=== PATIENT | female | born 1945 | race Caucasian/White ===

== ENCOUNTER 2022-08-06 07:37 | Inpatient (IN) | payer OTHER ==
[~2022-08-06] VITALS: Ht 160 cm; Wt 42.7 kg
[2022-08-06] MEDS ORDERED: SODIUM CHLORIDE 0.9% 500 ML IV ONE (08:00)
[2022-08-06] MEDS ORDERED: PANTOPRAZOLE 40mg/50ML NS AE 50 ML IV ONE (08:00)
[2022-08-06 08:15] LABS: Basophils # (auto) 0 10 ^3/uL (0-0.2); Basophils % (auto) 0.7 % (0.0-2.0); Eosinophils # (auto) 0 10 ^3/uL (0-0.8); Eosinophils % (auto) 0.6 % (0.0-7.0); Hematocrit 35.8 % (36.0-46.0); Hemoglobin 12.2 g/dL (12.2-16.2); Lymphocytes # (auto) 0.6 10 ^3/uL (0.4-5.4); Mean Corpuscular Hemoglobin 29.2 pg (28.0-32.0); Monocytes # (auto) 0.4 10 ^3/uL (0-1.3); Neutrophils # (auto) 2.7 10 ^3/uL (1.6-8.6); Neutrophils % (auto) 71.7 % (37.0-80.0); Nucleated Red Blood Cells % 0.2 %; Red Blood Cells 4.16 10^6/uL (4.0-5.20); Red Cell Distribution Width 12.6 % (11.8-14.3); White Blood Cell 3.7 10^3/uL (4.4-10.8)
[2022-08-06 08:30] LABS: Potassium 4.5 mmol/L (3.5-5.1)
[2022-08-06 08:36] LABS: Albumin 3.2 g/dL (3.4-5.0); BUN/Creatinine Ratio 19.9 (10.0-20.0); Bilirubin, Total 0.6 mg/dL (0.2-1.0); Calcium 9.1 mg/dL (8.5-10.1); Total Protein 6.5 g/dL (6.4-8.2)
[2022-08-06] MEDS ORDERED: SODIUM CHLORIDE 0.9% 1,000 ML IV ONE ×4 (11:45)
[2022-08-06] MEDS ORDERED: MORPHINE SULFATE INJ 2 MG/ml SYRG IV PRN (11:45)
[2022-08-06] MEDS ORDERED: NITROGLYCERIN 0.4 MG SL TAB SL PRN (11:45)
[2022-08-06 12:21] LABS: Basophils # (auto) 0 10 ^3/uL (0-0.2); Basophils % (auto) 0.6 % (0.0-2.0); Eosinophils # (auto) 0 10 ^3/uL (0-0.8); Eosinophils % (auto) 0.7 % (0.0-7.0); Hematocrit 36.4 % (36.0-46.0); Hemoglobin 12.1 g/dL (12.2-16.2); Lymphocytes % (auto) 23.6 % (10.0-50.0); Mean Corpuscular Hemoglobin 28.8 pg (28.0-32.0); Mean Corpuscular Hgb Conc. 33.3 g/dL (32.0-36.0); Mean Corpuscular Volume 86.4 fL (80.0-100.0); Monocytes # (auto) 0.4 10 ^3/uL (0-1.3); Neutrophils # (auto) 2.7 10 ^3/uL (1.6-8.6); Neutrophils % (auto) 66.1 % (37.0-80.0); Nucleated Red Blood Cells % 0.4 %; Red Blood Cells 4.21 10^6/uL (4.0-5.20); Red Cell Distribution Width 12.7 % (11.8-14.3); White Blood Cell 4.2 10^3/uL (4.4-10.8)
[2022-08-06 12:23] LABS: INR 1.18 (0.9-1.15)
[2022-08-06 12:39] LABS: Urine Bacteria FEW /hpf (None Seen); Urine Blood Negative /uL (Negative); Urine Hyaline Cast FEW /lpf (0 - 2); Urine Specific Gravity 1.015 (1.001-1.035); Urine WBC 18 /hpf (0 - 5)
[2022-08-06] MEDS: SODIUM CHLORIDE 0.9% 1,000 ML IV SCH ×2 (14:02→23:15)
[2022-08-06] MEDS: PIPERACILLIN-TAZOB 2.25GM 50 ML IV SCH ×2 (14:02→20:26)
[2022-08-06] MEDS: HYDROcodone-ACET 5/325MG TAB PO PRN (22:32)
[2022-08-06] MEDS: PANTOPRAZOLE 40 MG/10 ML VIAL INJ IV SCH (22:32)
[2022-08-07] MEDS: HYDROcodone-ACET 5/325MG TAB PO PRN (02:35)
[2022-08-07 06:10] LABS: Basophils # (auto) 0 10 ^3/uL (0-0.2); Basophils % (auto) 0.5 % (0.0-2.0); Eosinophils # (auto) 0 10 ^3/uL (0-0.8); Hematocrit 31.4 % (36.0-46.0); Lymphocytes # (auto) 0.5 10 ^3/uL (0.4-5.4); Lymphocytes % (auto) 14.1 % (10.0-50.0); Mean Corpuscular Hemoglobin 32.8 pg (28.0-32.0); Mean Corpuscular Hgb Conc. 34.9 g/dL (32.0-36.0); Mean Corpuscular Volume 94.1 fL (80.0-100.0); Monocytes # (auto) 0.3 10 ^3/uL (0-1.3); Monocytes % (auto) 9.7 % (0.0-12.0); Neutrophils # (auto) 2.5 10 ^3/uL (1.6-8.6); Neutrophils % (auto) 74.7 % (37.0-80.0); Nucleated Red Blood Cells % 0.1 %; Red Blood Cells 3.34 10^6/uL (4.0-5.20); Red Cell Distribution Width 12.4 % (11.8-14.3); White Blood Cell 3.3 10^3/uL (4.4-10.8)
[2022-08-07] MEDS: PIPERACILLIN-TAZOB 2.25GM 50 ML IV SCH ×3 (06:26→14:34)
[2022-08-07 06:44] LABS: Potassium 3.8 mmol/L (3.5-5.1)
[2022-08-07 07:00] LABS: Albumin 2.9 g/dL (3.4-5.0); BUN/Creatinine Ratio 21.5 (10.0-20.0); Bilirubin, Total 0.7 mg/dL (0.2-1.0); Calcium 8.6 mg/dL (8.5-10.1)
[2022-08-07] MEDS ORDERED: LEVO500T31 PO (07:57)
[2022-08-07] MEDS ORDERED: METR500T PO (07:57)
[2022-08-07] MEDS: LACTATED RINGER'S 1,000 ML IV SCH ×3 (08:00→22:27)
[2022-08-07] MEDS: PANTOPRAZOLE 40 MG/10 ML VIAL INJ IV SCH ×2 (10:00→22:17)
[2022-08-07] MEDS: SODIUM BICARBONATE 650 MG TAB PO SCH ×2 (18:00→22:17)
[2022-08-08] MEDS: PIPERACILLIN-TAZOB 2.25GM 50 ML IV SCH (05:29)
[2022-08-08] MEDS: SODIUM BICARBONATE 650 MG TAB PO SCH (05:31)
[2022-08-08 06:28] LABS: Basophils # (auto) 0 10 ^3/uL (0-0.2); Basophils % (auto) 0.7 % (0.0-2.0); Eosinophils # (auto) 0 10 ^3/uL (0-0.8); Eosinophils % (auto) 1.2 % (0.0-7.0); Hematocrit 30.4 % (36.0-46.0); Hemoglobin 10.4 g/dL (12.2-16.2); Lymphocytes # (auto) 0.7 10 ^3/uL (0.4-5.4); Lymphocytes % (auto) 21.1 % (10.0-50.0); Mean Corpuscular Hemoglobin 29.6 pg (28.0-32.0); Mean Corpuscular Hgb Conc. 34.2 g/dL (32.0-36.0); Mean Corpuscular Volume 86.7 fL (80.0-100.0); Monocytes # (auto) 0.4 10 ^3/uL (0-1.3); Monocytes % (auto) 11.2 % (0.0-12.0); Neutrophils # (auto) 2.1 10 ^3/uL (1.6-8.6); Neutrophils % (auto) 65.8 % (37.0-80.0); Nucleated Red Blood Cells % 0.2 %; Red Cell Distribution Width 12.6 % (11.8-14.3); White Blood Cell 3.2 10^3/uL (4.4-10.8)
[2022-08-08 07:01] LABS: Potassium 3.8 mmol/L (3.5-5.1)
[2022-08-08 07:11] LABS: Albumin 2.6 g/dL (3.4-5.0); BUN/Creatinine Ratio 17.5 (10.0-20.0); Calcium 8.2 mg/dL (8.5-10.1)
[2022-08-08 07:13] LABS: Bilirubin, Total 0.6 mg/dL (0.2-1.0); Total Protein 5.6 g/dL (6.4-8.2)
[2022-08-08 07:20] VITALS: BP 114/73
== END 2022-08-08 08:35 | disposition home health service (06) | DRG 683 ==
LOC: EDBD 07:37 → ER 07:37 → TELE 11:45
PROVIDERS: ADMIT Internal Medicine; ATTEND Internal Medicine
DX: N17.9 Acute kidney failure, unspecified (principal); E44.0 Moderate protein-calorie malnutrition; Z68.1 Body mass index [BMI] 19.9 or less, adult; E03.9 Hypothyroidism, unspecified; E78.5 Hyperlipidemia, unspecified; I10 Essential (primary) hypertension; R63.4 Abnormal weight loss; Z90.49 Acquired absence of other specified parts of digestive tract; Z88.2 Allergy status to sulfonamides; Z91.040 Latex allergy status; Z90.710 Acquired absence of both cervix and uterus; I95.9 Hypotension, unspecified
CPT/HCPCS: 36415; 74176; 76775; 80053; 81001; 83690; 84484; 85025; 85610; 86850; 86870; 86900; 86901; 87040; 93005; 96365; 96366; C9113; G0378; J2543

== ENCOUNTER 2022-08-16 08:16 | Inpatient (IN) | payer OTHER ==
[~2022-08-16] VITALS: Ht 154.9 cm; Wt 47.0 kg
[~2022-08-16 08:16] MED LIST: LEVO500T31 PO; METR500T PO
[2022-08-16] MEDS ORDERED: SODIUM CHLORIDE 0.9% 1,000 ML IV ONE (08:30)
[2022-08-16] MEDS ORDERED: SODIUM CHLORIDE 0.9% 500 ML IV ONE (08:45)
[2022-08-16 09:46] LABS: Basophils # (auto) 0 10 ^3/uL (0-0.2); Basophils % (auto) 0.1 % (0.0-2.0); Eosinophils # (auto) 0 10 ^3/uL (0-0.8); Hematocrit 32.1 % (36.0-46.0); Lymphocytes # (auto) 0.5 10 ^3/uL (0.4-5.4); Lymphocytes % (auto) 11.2 % (10.0-50.0); Mean Corpuscular Hemoglobin 28.9 pg (28.0-32.0); Mean Corpuscular Hgb Conc. 34.3 g/dL (32.0-36.0); Mean Corpuscular Volume 84.4 fL (80.0-100.0); Monocytes # (auto) 0.4 10 ^3/uL (0-1.3); Monocytes % (auto) 9.4 % (0.0-12.0); Neutrophils # (auto) 3.7 10 ^3/uL (1.6-8.6); Neutrophils % (auto) 79.3 % (37.0-80.0); Nucleated Red Blood Cells % 0.1 %; Red Cell Distribution Width 13.4 % (11.8-14.3); White Blood Cell 4.7 10^3/uL (4.4-10.8)
[2022-08-16 09:59] LABS: Albumin 2.8 g/dL (3.4-5.0); Calcium 7.4 mg/dL (8.5-10.1)
[2022-08-16 10:03] LABS: BUN/Creatinine Ratio 17.8 (10.0-20.0); Bilirubin, Total 0.4 mg/dL (0.2-1.0); Total Protein 4.9 g/dL (6.4-8.2)
[2022-08-16 10:24] LABS: Potassium 2.4 mmol/L (3.5-5.1)
[2022-08-16] MEDS: POTASSIUM CHL 20MEQ/100ML 100 ML IV SCH ×2 (11:07→13:14)
[2022-08-16] MEDS ORDERED: ENOXAPARIN SOD 60 MG/0.6 ML SYRINGE SC ONE (11:30)
[2022-08-16 12:03] LABS: Urine Bacteria NONE SEEN /hpf (None Seen); Urine Blood Negative /uL (Negative); Urine Specific Gravity 1.014 (1.001-1.035); Urine WBC 1 /hpf (0 - 5)
[2022-08-16 12:41] LABS: Alcohol, Urine < 3.0 mg/dL (0-10); Amphetamine Screen, Urine NEGATIVE (NEGATIVE); Barbiturate Scree,Urine NEGATIVE (NEGATIVE); Benzodiazephine Screen, Urine NEGATIVE (NEGATIVE); Cannabinoid Screen, Urine NEGATIVE (NEGATIVE); Cocaine Screen, Urine NEGATIVE (NEGATIVE)
[2022-08-16 12:49] LABS: Opiate Scree,Urine NEGATIVE (NEGATIVE); Phencyclidine Screen, Urine NEGATIVE (NEGATIVE)
[2022-08-16] MEDS ORDERED: cefTRIAXone 1GM/50ML D5W 50 ML IV ONE (13:45)
[2022-08-16] MEDS ORDERED: HEPARIN DRIP/D5W 100UNITS/ML 250 ML IV SCH (14:45)
[2022-08-16] MEDS ORDERED: LORazepam 2MG/ML-1ML VIAL IV ONE (15:00)
[2022-08-16 15:22] LABS: Basophils # (auto) 0 10 ^3/uL (0-0.2); Basophils % (auto) 0.2 % (0.0-2.0); Eosinophils # (auto) 0 10 ^3/uL (0-0.8); Hematocrit 32.1 % (36.0-46.0); Hemoglobin 11.1 g/dL (12.2-16.2); Lymphocytes # (auto) 0.5 10 ^3/uL (0.4-5.4); Lymphocytes % (auto) 8.6 % (10.0-50.0); Mean Corpuscular Hemoglobin 29.2 pg (28.0-32.0); Mean Corpuscular Hgb Conc. 34.7 g/dL (32.0-36.0); Mean Corpuscular Volume 84.1 fL (80.0-100.0); Monocytes # (auto) 0.6 10 ^3/uL (0-1.3); Neutrophils # (auto) 5.1 10 ^3/uL (1.6-8.6); Neutrophils % (auto) 82.2 % (37.0-80.0); Nucleated Red Blood Cells % 0.1 %; Red Blood Cells 3.82 10^6/uL (4.0-5.20); Red Cell Distribution Width 13.3 % (11.8-14.3); White Blood Cell 6.2 10^3/uL (4.4-10.8)
[2022-08-16 16:14] LABS: INR 1.57 (0.9-1.15); Partial Thromboplastin Time 35.6 sec (24.6-33.4)
[2022-08-16] MEDS ORDERED: LORazepam 2MG/ML-1ML VIAL IV PRN (17:30)
[2022-08-16] MEDS ORDERED: levETIRAcetam 500 MG/5ML INJ IV ONE (22:40)
[2022-08-17 05:51] LABS: Basophils # (auto) 0 10 ^3/uL (0-0.2); Basophils % (auto) 0.3 % (0.0-2.0); Eosinophils # (auto) 0 10 ^3/uL (0-0.8); Eosinophils % (auto) 0.2 % (0.0-7.0); Hematocrit 31.9 % (36.0-46.0); Hemoglobin 11.1 g/dL (12.2-16.2); Lymphocytes # (auto) 0.8 10 ^3/uL (0.4-5.4); Mean Corpuscular Hemoglobin 29.5 pg (28.0-32.0); Mean Corpuscular Hgb Conc. 34.9 g/dL (32.0-36.0); Mean Corpuscular Volume 84.4 fL (80.0-100.0); Monocytes # (auto) 0.6 10 ^3/uL (0-1.3); Monocytes % (auto) 10.4 % (0.0-12.0); Neutrophils % (auto) 74.1 % (37.0-80.0); Nucleated Red Blood Cells % 0.1 %; Red Blood Cells 3.78 10^6/uL (4.0-5.20); Red Cell Distribution Width 13.9 % (11.8-14.3); White Blood Cell 5.4 10^3/uL (4.4-10.8)
[2022-08-17 06:08] LABS: Albumin 2.5 g/dL (3.4-5.0); Calcium 7.4 mg/dL (8.5-10.1); Potassium 3.1 mmol/L (3.5-5.1)
[2022-08-17 06:12] LABS: BUN/Creatinine Ratio 15.9 (10.0-20.0); Bilirubin, Total 0.3 mg/dL (0.2-1.0); Total Protein 4.7 g/dL (6.4-8.2)
[2022-08-17] MEDS ORDERED: POTASSIUM CHL 20 Meq TABLET PO ONE (09:30)
[2022-08-17] MEDS ORDERED: IOHEXOL 300 MG/ML 100ML BOTTLE IJ ONE (10:19)
[2022-08-17 10:52] LABS: Thyroid Stimulating Hormone 5.4 uIU/mL (0.358-3.74)
[2022-08-17 11:28] LABS: Hepatitis B Surface Antibody Negative (Negative)
[2022-08-17 13:46] LABS: Hepatitis C Antibody Negative (Negative)
[2022-08-17] MEDS ORDERED: LORazepam 2MG/ML-1ML VIAL IV PRN (21:15)
[2022-08-18] MEDS ORDERED: MORPHINE SULFATE INJ 2 MG/ml SYRG IV PRN (10:00)
[2022-08-18] MEDS ORDERED: NITROGLYCERIN 0.4 MG SL TAB SL PRN (10:00)
[2022-08-18] MEDS: NICOTINE 14 MG/24HR TOPICAL PATCH TD SCH (10:00)
[2022-08-18] MEDS ORDERED: FUROSEMIDE 20 MG/2 ML VIAL IV SCH (10:00)
[2022-08-18] MEDS ORDERED: cefTRIAXone 1GM/50ML D5W 50 ML IV ONE (10:00)
[2022-08-18] MEDS: SACUBITRIL-VALSARTAN 24mg/26mg TAB PO SCH ×2 (10:00→13:41)
[2022-08-18 10:15] LABS: Basophils # (auto) 0 10 ^3/uL (0-0.2); Basophils % (auto) 0.7 % (0.0-2.0); Eosinophils # (auto) 0 10 ^3/uL (0-0.8); Eosinophils % (auto) 0.5 % (0.0-7.0); Hematocrit 34.3 % (36.0-46.0); Hemoglobin 11.9 g/dL (12.2-16.2); Lymphocytes # (auto) 0.8 10 ^3/uL (0.4-5.4); Lymphocytes % (auto) 15.7 % (10.0-50.0); Mean Corpuscular Hemoglobin 29.3 pg (28.0-32.0); Mean Corpuscular Hgb Conc. 34.6 g/dL (32.0-36.0); Mean Corpuscular Volume 84.7 fL (80.0-100.0); Monocytes # (auto) 0.6 10 ^3/uL (0-1.3); Monocytes % (auto) 11.2 % (0.0-12.0); Neutrophils # (auto) 3.7 10 ^3/uL (1.6-8.6); Neutrophils % (auto) 71.9 % (37.0-80.0); Nucleated Red Blood Cells % 0.1 %; Red Blood Cells 4.05 10^6/uL (4.0-5.20); Red Cell Distribution Width 13.9 % (11.8-14.3); White Blood Cell 5.1 10^3/uL (4.4-10.8)
[2022-08-18 10:35] LABS: Potassium 3.6 mmol/L (3.5-5.1)
[2022-08-18 10:43] LABS: BUN/Creatinine Ratio 11.6 (10.0-20.0); Calcium 7.7 mg/dL (8.5-10.1); Magnesium 1.6 mg/dL (1.6-2.6)
[2022-08-18] MEDS: MAGNESIUM SULFATE 1GM/100ML 100 ML IV ONE ×2 (11:30→13:41)
[2022-08-18] MEDS: POTASSIUM EFFERVESENT TAB 25 MEQ PO ONE ×2 (11:36→13:42)
[2022-08-18] MEDS ORDERED: METO25TA93 PO (15:30)
[2022-08-18] MEDS ORDERED: FURO1TAB33 PO (15:30)
[2022-08-18] MEDS ORDERED: SERT25TA84 PO (15:30)
[2022-08-18] MEDS ORDERED: POTA10TA51 PO (15:30)
[2022-08-18] MEDS ORDERED: LOSA-69 PO (15:44)
[2022-08-18] MEDS ORDERED: LEVO50TA7 PO (15:44)
[2022-08-18] MEDS ORDERED: HYDR200T36 PO (15:44)
[2022-08-18] MEDS ORDERED: SIMV-13 PO (15:44)
[2022-08-18] MEDS ORDERED: ASPI-325 PO (15:45)
[2022-08-18 16:00] VITALS: BP 107/62
[2022-08-19] MEDS ORDERED: EMPAGLIFLOZIN 10 MG TAB PO SCH (07:00)
[2022-08-19] MEDS ORDERED: cefTRIAXone 1GM/50ML D5W 50 ML IV SCH (09:00)
[2022-08-19] MEDS ORDERED: SERTRALINE HCL 50 MG TAB PO SCH (10:00)
== END 2022-08-18 17:30 | disposition home health service (06) | DRG 100 ==
LOC: EDBD 08:16 → ER 08:16 → TELE 14:54
PROVIDERS: ADMIT Hospitalist; ATTEND Hospitalist
DX: G40.401 Other generalized epilepsy and epileptic syndromes, not intractable, with status epilepticus (principal); I21.A1 Myocardial infarction type 2; I50.23 Acute on chronic systolic (congestive) heart failure; J96.01 Acute respiratory failure with hypoxia; N17.9 Acute kidney failure, unspecified; I42.0 Dilated cardiomyopathy; N39.0 Urinary tract infection, site not specified; F32.A Depression, unspecified; F41.9 Anxiety disorder, unspecified; T40.412A Poisoning by fentanyl or fentanyl analogs, intentional self-harm, initial encounter; E87.6 Hypokalemia; D69.6 Thrombocytopenia, unspecified; E78.5 Hyperlipidemia, unspecified; K58.9 Irritable bowel syndrome, unspecified; M06.9 Rheumatoid arthritis, unspecified; E07.9 Disorder of thyroid, unspecified; F17.200 Nicotine dependence, unspecified, uncomplicated; I11.0 Hypertensive heart disease with heart failure; Z83.3 Family history of diabetes mellitus; Z90.710 Acquired absence of both cervix and uterus; Z90.49 Acquired absence of other specified parts of digestive tract; Z88.2 Allergy status to sulfonamides; Z91.040 Latex allergy status; Y92.89 Other specified places as the place of occurrence of the external cause
CPT/HCPCS: 36415; 51702; 70450; 70551; 71045; 71260; 74177; 80048; 80053; 80061; 80307; 81001; 82607; 82962; 83036; 83615; 83735; 83880; 84155; 84165; 84443; 84484; 85025; 85610; 85730; 86038; 86706; 86803; 87340; 93005; 93306; 95819; 96361; 96365; 96366; 96368; 96372; 99291; G0378; J0696; J3480; J7060